=== PATIENT | female | born 1995 | race Caucasian/White ===

== ENCOUNTER 2016-11-28 09:43 | Emergency (ER) | payer BC ==
[~2016-11-28] VITALS: Ht 162.6 cm; Wt 75.3 kg
[~2016-11-28 09:43] MED LIST: LEVAAER2 INH; LEVO-13 PO; LISI-725 PO; METO25TA3 PO; PRED20TA2 PO
[2016-11-28 09:51] VITALS: TEMP 36.8; Ht 162.6 cm; Wt 75.3 kg
[2016-11-28] MEDS ORDERED: DILT120C68 PO (10:04)
[2016-11-28] MEDS ORDERED: ISOT30CA PO (10:04)
[2016-11-28] MEDS ORDERED: LEVA45AE INH (10:05)
[2016-11-28] MEDS ORDERED: SODIUM CHLORIDE 0.9% 1000ML 2,000 ML IV STA (10:11)
--- NOTE | 2016-11-28 10:24 | EMERGENCY ROOM VISIT NOTE ---
History Report prepared by Wendy: Natna Gillespie Under the Supervision of: Dr. Holli Alberto M.D. First contact with patient: 10:02 Chief Complaint: ED VAG BLEEDING Stated Complaint: HEAVY MENSTRUAL BLEEDING/PARAGARD History of Present Illness The patient is a 21 year old female who presents to the Emergency Room with complaints of heavy vaginal bleeding. The patient had a copper IUD placed in August. She had abnormally heavy menstrual bleeding on November 05, which was the first time she bled since she had the IUD inserted. The patient started bleeding again this week, which is also abnormally heavy. The patient had pelvic pain with the bleeding, which is currently resolved. The patient also complains of dizziness. She has been taking Ibuprofen for pain. The patient had a negative test prior to IUD placement. Source of History: patient Onset: November 05 Position: other (vaginal) Symptom Intensity: heavy Quality: other (vaginal bleeding) Associated Symptoms: + abdominal pain (pelvic) Note: Positive for dizziness. Review of Systems See HPI for pertinent positives & negatives. A total of 10 systems reviewed and were otherwise negative. Past Medical & Surgical Medical Problems: (1) HTN (hypertension) Family History Cancer Diabetes mellitus Gallbladder disease Heart disease Hypertension Lung disease Social History Smoking Status: Never Smoker Marital Status: Housing Status: lives with family Occupation Status: employed Current/Historical Medications Scheduled Diltiazem Hcl Ext Rel (Tiazac), 120 MG PO DAILY Isotretinoin (Claravis), 40 MG PO DAILY Scheduled PRN Levalbuterol Tartrate (Levalbuterol Tartrate Hfa), 1 PUFF INH QID PRN for SOB/ Wheezing Allergies Coded Allergies: Lisinopril (Unverified Adverse Reaction, Severe, angioedema, 11/28/16) Physical Exam Vital Signs Date Time Temp Pulse Resp B/P Pulse Ox O2 Delivery O2 Flow Rate FiO2 11/28/16 14:51 70 130/87 98 11/28/16 13:19 59 18 130/93 100 Room Air 11/28/16 11:00 73 125/81 99 11/28/16 10:12 76 11/28/16 09:51 36.8 84 18 162/115 98 Room Air Physical Exam Vital signs reviewed. General: Well-appearing female, in no significant distress. HEENT: No scleral icterus, PERRLA, neck supple. Atraumatic. Cardiovascular: Regular rate and rhythm, no extra sounds. Pulmonary: Clear to auscultation bilaterally, normal work of breathing. Abdomen: Soft, nontender, nondistended, positive bowel sounds. Musculoskeletal: Atraumatic, no peripheral edema. Neurologic: Patient awake alert and oriented x 3 Skin: Warm, dry, no rash Pelvis: Scant amount of dark vaginal blood. IUD strings palpated but not visualized. Medical Decision & Procedures ER Provider Diagnostic Interpretation: US results as stated below per my review and radiologist interpretation: ULTRASOUND OF THE PELVIS CLINICAL HISTORY: Intrauterine device placement. COMPARISON STUDY: Pelvic ultrasound dated 04/04/2016. TECHNIQUE: Real-time, grayscale, and color flow sonography of the pelvis is performed both transabdominally and endovaginally. Images are reviewed in the transverse and longitudinal planes. FINDINGS: Uterus: The uterus is normal in size and echotexture, measuring 5.7 x 3.0 x 4.6 cm. Endometrium: The endometrium is normal in appearance, and the endometrial stripe is normal in thickness measuring up to 0.8 cm. A shadowing intrauterine device is noted and appears to be in appropriate position. Ovaries: The ovaries are normal in size and morphology. The right ovary measures 3.8 x 1.5 x 2.0 cm and the left ovary measures 4.2 x 1.7 x 2.4 cm. There are numerous small bilateral ovarian follicles. Normal Doppler waveforms are shown within both ovaries. Pelvis: There is no free fluid in the cul-de-sac. No concerning adnexal lesion is seen. IMPRESSION: 1. No acute sonographic amount is identified in the pelvis. 2. An intrauterine device is identified and appears to be in appropriate position. Electronically signed by: Aidan Loving M.D. 11/28/2016 12:06 PM Dictated Date/Time: 11/28/2016 12:04 PM Laboratory Results 11/28/16 10:43 Red Blood Count 4.89, Mean Corpuscular Volume 86.7, Mean Corpuscular Hemoglobin 30.1, Mean Corpuscular Hemoglobin Concent 34.7, Mean Platelet Volume 9.5, Neutrophils (%) (Auto) 58.9, Lymphocytes (%) (Auto) 24.0, Monocytes (%) (Auto) 12.1, Eosinophils (%) (Auto) 4.4, Basophils (%) (Auto) 0.6, Neutrophils # (Auto ) 2.82, Lymphocytes # (Auto) 1.15, Monocytes # (Auto) 0.58, Eosinophils # (Auto ) 0.21, Basophils # (Auto) 0.03 11/28/16 10:43 Test 11/28/16 10:43 White Blood Count 4.79 K/uL (4.8-10.8) Red Blood Count 4.89 M/uL (4.2-5.4) Hemoglobin 14.7 g/dL (12.0-16.0) Hematocrit 42.4 % (37-47) Mean Corpuscular Volume 86.7 fL (80-100) Mean Corpuscular Hemoglobin 30.1 pg (25-34) Mean Corpuscular Hemoglobin Concent 34.7 g/dl (32-36) Platelet Count 278 K/uL (130-400) Mean Platelet Volume 9.5 fL (7.4-10.4) Neutrophils (%) (Auto) 58.9 % Lymphocytes (%) (Auto) 24.0 % Monocytes (%) (Auto) 12.1 % Eosinophils (%) (Auto) 4.4 % Basophils (%) (Auto) 0.6 % Neutrophils # (Auto) 2.82 K/uL (1.4-6.5) Lymphocytes # (Auto) 1.15 K/uL (1.2-3.4) Monocytes # (Auto) 0.58 K/uL (0.11-0.59) Eosinophils # (Auto) 0.21 K/uL (0-0.5) Basophils # (Auto) 0.03 K/uL (0-0.2) RDW Standard Deviation 38.0 fL (36.4-46.3) RDW Coefficient of Variation 12.0 % (11.5-14.5) Immature Granulocyte % (Auto) 0.0 % Immature Granulocyte # (Auto) 0.00 K/uL (0.00-0.02) Anion Gap 10.0 mmol/L (3-11) Est Creatinine Clear Calc Drug Dose 95.6 ml/min Estimated GFR () 103.1 Estimated GFR (Non- 88.9 BUN/Creatinine Ratio 13.9 (10-20) Calcium Level 9.2 mg/dl (8.5-10.1) Total Bilirubin 0.5 mg/dl (0.2-1) Direct Bilirubin 0.1 mg/dl (0-0.2) Aspartate Amino Transf (AST/SGOT) 26 U/L (15-37) Alanine Aminotransferase (ALT/SGPT) 33 U/L (12-78) Alkaline Phosphatase 76 U/L (45-117) Total Protein 7.8 gm/dl (6.4-8.2) Albumin 4.1 gm/dl (3.4-5.0) Human Chorionic Gonadotropin, Qual NEG (NEG) Laboratory results per my review. Medications Administered Medications (Trade) Dose Ordered Sig/Malorie Route Start Time Stop Time Status Last Admin Dose Admin Sodium Chloride (Nss 1000ml) 2,000 ml @ 999 mls/hr Q2H1M STAT IV 11/28/16 10:11 11/28/16 15:03 DC 11/28/16 10:46 999 MLS/HR ED Course 1008: Past medical records reviewed. The patient was evaluated in room C7. A complete history and physical examination was performed. 1011: NSS 2000 ml @ 999 mls/hr. 1405: Reexamined the patient. 1445: Reassessed the patient. Discussed the findings with her. She verbalized understanding and agreement of the treatment plan. The patient is ready for discharge. Medical Decision Etiologies such as ectopic , dysfunction uterine bleeding, bleeding dyscrasia, trauma, infection, as well as others were entertained. This patient was evaluated and appeared to be in no significant distress. Physical examination is fairly unrevealing. Ultrasound of the pelvis reveals the IUD in good position. Pelvic exam reveals a small amount of dark blood in the vaginal vault. IUD strings are palpated but not well visualized. I suspect the patient is having dysfunctional bleeding secondary to the IUD. H&H is stable. The patient will follow-up with her PEDIATRIC GENETICIST for reevaluation and return to the ER for worsening of symptoms or any medical concerns. Impression Primary Impression: Dysfunctional uterine bleeding Additional Impression: IUD (intrauterine device) in place Scribe Attestation The scribe's documentation has been prepared under my direction and personally reviewed by me in its entirety. I confirm that the note above accurately reflects all work, treatment, procedures, and medical decision making performed by me. Departure Information Dispostion Home / Self-Care Referrals Live, Aspen C.R.N.P. (PCP) Forms HOME CARE DOCUMENTATION FORM, IMPORTANT VISIT INFORMATION, WORK / SCHOOL INSTRUCTIONS Patient Instructions My [facility] [employer] Additional Instructions Diagnosis: IUD placement, dysfunctional uterine bleeding Please follow-up with Dr. Calderon of [facility] group PEDIATRIC GENETICIST at 10: 30 AM Monday12/05/16 Drink plenty of clear fluids. Return to the emergency department for worsening of symptoms or any medical concerns. Problem Qualifiers
[2016-11-28 11:02] LABS: BASO % 0.6 %; BASO ABS # 0.03 K/uL (0-0.2); COMPLETE YES; EOS % 4.4 %; HEMATOCRIT 42.4 % (37-47); LYMPH ABS # 1.15 K/uL (1.2-3.4); MEAN CELL VOLUME 86.7 fL (80-100); MEAN CORPUSCULAR HEMOGLOBIN 30.1 pg (25-34); MEAN CORPUSCULAR HGB CONC 34.7 g/dl (32-36); MEAN PLATELET VOLUME 9.5 fL (7.4-10.4); MONO % 12.1 %; NEUT % 58.9 %; PLATELET COUNT 278 K/uL (130-400); RED BLOOD COUNT 4.89 M/uL (4.2-5.4); WHITE BLOOD COUNT 4.79 K/uL (4.8-10.8)
[2016-11-28 11:21] LABS: BUN/CREATININE RATIO 13.9 (10-20); CALCIUM 9.2 mg/dl (8.5-10.1); CREATININE 0.91 mg/dl (0.60-1.20)
[2016-11-28 11:39] LABS: PREG INTERNAL NEGATIVE QC NEG CLEAR BACKGROUND; PREG INTERNAL POSITIVE QC POS CONTROL LINE
--- NOTE | 2016-11-28 12:07 | DIAGNOSTIC IMAGING REPORT ---
ULTRASOUND OF THE PELVIS CLINICAL HISTORY: Intrauterine device placement. COMPARISON STUDY: Pelvic ultrasound dated 04/04/2016. TECHNIQUE: Real-time, grayscale, and color flow sonography of the pelvis is performed both transabdominally and endovaginally. Images are reviewed in the transverse and longitudinal planes. FINDINGS: Uterus: The uterus is normal in size and echotexture, measuring 5.7 x 3.0 x 4.6 cm. Endometrium: The endometrium is normal in appearance, and the endometrial stripe is normal in thickness measuring up to 0.8 cm. A shadowing intrauterine device is noted and appears to be in appropriate position. Ovaries: The ovaries are normal in size and morphology. The right ovary measures 3.8 x 1.5 x 2.0 cm and the left ovary measures 4.2 x 1.7 x 2.4 cm. There are numerous small bilateral ovarian follicles. Normal Doppler waveforms are shown within both ovaries. Pelvis: There is no free fluid in the cul-de-sac. No concerning adnexal lesion is seen. IMPRESSION: 1. No acute sonographic amount is identified in the pelvis. 2. An intrauterine device is identified and appears to be in appropriate position. Electronically signed by: Aidan Loving M.D. 11/28/2016 12:06 PM Dictated Date/Time: 11/28/2016 12:04 PM
[2016-11-28 14:51] VITALS: BP 130/87; PULSE 70; O2SAT 98
== END 2016-11-28 14:52 | disposition home or self-care (01) ==
LOC: C.EDB 09:46 → C.EDC 14:52
DX: N93.8 Other specified abnormal uterine and vaginal bleeding (principal); I10 Essential (primary) hypertension; Z97.5 Presence of (intrauterine) contraceptive device; Z79.899 Other long term (current) drug therapy; Z88.8 Allergy status to other drugs, medicaments and biological substances; Z80.9 Family history of malignant neoplasm, unspecified; Z83.3 Family history of diabetes mellitus; Z83.79 Family history of other diseases of the digestive system; Z82.49 Family history of ischemic heart disease and other diseases of the circulatory system

== ENCOUNTER 2016-12-13 19:45 | Emergency (ER) | payer BC ==
[~2016-12-13] VITALS: Ht 162.6 cm; Wt 76.0 kg
[~2016-12-13 19:45] MED LIST changes: +DILT120C68 PO; +ISOT30CA PO; +LEVA45AE INH; -LEVAAER2 INH; -LEVO-13 PO; -LISI-725 PO; -METO25TA3 PO; -PRED20TA2 PO
[2016-12-13 19:52] VITALS: TEMP 37; Ht 162.6 cm; Wt 76.0 kg
[2016-12-13 20:10] VITALS: O2SAT 100
--- NOTE | 2016-12-13 20:18 | EMERGENCY ROOM VISIT NOTE ---
History Report prepared by Wendy: Vance Solitario Under the Supervision of: Dr. Vance Arias M.D. First contact with patient: 20:13 Chief Complaint: ALLERGIC REACTION Stated Complaint: ALLERGIC REACTION Nursing Triage Summary: Pt reports she had an unknown allergy to shrimp (had eaten in past). Had shrimp this evening approx 1800 and developed hives and chest/throat tightness. Used epipen prior to arrival. History of Present Illness The patient is a 21 year old female who presents to the Emergency Room with complaints of an episode of allergic reaction occurring about 2 hours [employer]. She notes she ate shrimp and then began to develop hives on her face and scalp, and chest tightness. She administered an EpiPen about 45 minutes ago which seemed to have helped her hives. She denies any nausea or vomiting, and denies any chance of . The patient admits to a history of asthma, and notes she was here two weeks ago after losing too much blood following the insertion of a copper IUD. Source of History: patient, spouse/significant other Onset: about 2 hours [employer] Position: head Quality: other (allergic reaction) Timing: other (episode) Modifying Factors (Relieving): other (EpiPen) Associated Symptoms: + chest pain ("tightness"), + rash (on face and scalp) , No nausea, No vomiting Review of Systems See HPI for pertinent positives & negatives. A total of 10 systems reviewed and were otherwise negative. Past Medical & Surgical Medical Problems: (1) HTN (hypertension) Old medical records were reviewed. Nurse's notes were reviewed and I agree with. Family History Cancer Diabetes mellitus Gallbladder disease Heart disease Hypertension Lung disease Social History Smoking Status: Never Smoker Drug Use: none Marital Status: Housing Status: lives with family Occupation Status: employed Current/Historical Medications Scheduled Diltiazem Hcl Ext Rel (Tiazac), 120 MG PO DAILY Isotretinoin (Claravis), 40 MG PO DAILY Metformin Hcl (Glucophage), 500 MG PO DAILY Prednisone (Prednisone), 50 MG PO DAILY Scheduled PRN Levalbuterol Tartrate (Levalbuterol Tartrate Hfa), 1 PUFF INH QID PRN for SOB/ Wheezing Allergies Coded Allergies: Lisinopril (Unverified Adverse Reaction, Severe, angioedema, 11/28/16) Physical Exam Vital Signs Date Time Temp Pulse Resp B/P Pulse Ox O2 Delivery O2 Flow Rate FiO2 2/14/17 22:33 74 16 127/91 96 Room Air 12/13/16 22:00 72 16 128/83 96 Room Air 12/13/16 21:00 75 16 128/84 100 Room Air 12/13/16 20:10 77 12/13/16 20:10 100 Room Air 12/13/16 20:00 79 18 156/86 99 Room Air 12/13/16 20:00 100 Room Air 12/13/16 19:52 37.0 98 18 164/96 100 Room Air Physical Exam General: Non ill appearing young female. Minimal redness of the face. No respiratory distress; no difficulty speaking or swallowing. HEENT: Normal cephalic atraumatic. Pupils are equal round and reactive to light. Extraocular movements are intact. Oropharynx is pink with moist mucous membranes. No swelling of the mouth lips or tongue. Posterior oropharynx is wide open Neck: Supple with a midline trachea. No meningeal signs or stiffness, no JVD or bruits. No Stridor. Chest: Clear to auscultation bilaterally. No wheezes or rhonchi. No increased work of breathing. Heart: regular rate and rhythm. Abdomen: Soft nontender, nondistended without rebound guarding or rigidity. Extremities: No cyanosis clubbing or edema. No calf tenderness or assymetry Spine/Back. Non tender to palpation. No CVA tenderness Skin: Good turgor without rashes. Neurologic exam: Cranial nerves two through 12 are intact. Motor and sensation are intact and symmetrical throughout. Medical Decision & Procedures Medications Administered Medications (Trade) Dose Ordered Sig/[facility] [place] Start Time Stop Time Status Last Admin Dose Admin Methylprednisolone Sodium Succinate (Solu-Medrol IV) 125 mg ONE STAT IV 12/13/16 20:20 12/13/16 20:22 DC 12/13/16 20:36 125 MG Diphenhydramine HCl 25 mg 25 mg NOW STAT IV 12/13/16 20:20 12/13/16 20:22 DC 12/13/16 20:37 25 MG Famotidine/ Dextrose (Pepcid IV Inj/ D5 100ml) 102 ml @ 200 mls/hr ONE STAT IV 12/13/16 20:20 12/13/16 20:50 DC 12/13/16 20:37 200 MLS/HR Epinephrine (Epipen) 0.3 mg NOW STAT IM 12/13/16 22:26 12/13/16 22:27 DC 12/13/16 22:32 0.3 MG ED Course 2018: Past medical records reviewed. The patient was evaluated in room A9B, and a complete history and physical examination were performed. 2019: Ordered Famotidine 20 mg/Dextrose 102 ml @ 200 mls/hr IV, Benadryl Inj 25 mg IV, and Solu-Medrol IV 125 mg IV. 2100: I reassessed the patient and she is doing better. 2224: I reassessed the patient and she is asymptomatic. 2225: Ordered Epinephrine 0.3 mg IM. 2229: Upon reevaluation, the patient is doing well. I discussed the results and treatment plan with the patient. She verbalized agreement of the treatment plan. The patient was discharged home. Medical Decision Differentials include allergic reaction, and urticaria. This patient comes in as described above. She was placed in room A9. She is here for treatment and evaluation of allergic reaction. She has treated herself with epinephrine at home. She apparently had a reaction to shrimp ,she' s had this before. She seemed a lot better . IV access established was given Benadryl 25 mg IV, solumedrol 125 mg IV and Pepcid 20 mg iv. she was observed for another hour and a half to 2 and remained comfortable and asymptomatic. She 's no further signs of allergic reaction. She feels good and up to going home. Prior to discharge, she has no shortness of breath or or facial swelling ,no chest pain, GI symptoms or rash. I did give her an EpiPen to go home with so she has one in case she has any further reactions. I told her to avoid shrimp. She was also given a small prescription for prednisone for the next 3 days as well as Benadryl instructions. She should return if: recurrence of symptoms, shortness of breath, any new problems or concerns. She is happy the plan and discharged to home. She should follow-up with her doctor this week for recheck. Impression Primary Impression: Allergic reaction Scribe Attestation The scribe's documentation has been prepared under my direction and personally reviewed by me in its entirety. I confirm that the note above accurately reflects all work, treatment, procedures, and medical decision making performed by me. Departure Information Dispostion Home / Self-Care Prescriptions Prednisone (Prednisone) 50 Mg Tab 50 MG PO DAILY, #3 TAB Prov: Vance Arias M.D. 12/13/16 Referrals [facility] Mancini (PCP) Patient Instructions My [facility] Additional Instructions Rest. Drink plenty of fluids. Use prednisone 50 mg a day for the next 3 dayssteroid Use Benadryl 25-50 mg every 8 hours if needed Return if you have recurrence of symptoms, shortness of breath, nausea or vomiting, difficulty speaking or swallowing, rash, any new problems or concerns Ensure that you carry your epi-pen with you and be careful with what foods that you eat Follow-up with your doctor this week for recheck
[2016-12-13] MEDS ORDERED: METHYLPREDNISOLONE 125 MG VIAL IV STA (20:20)
[2016-12-13] MEDS ORDERED: FAMOTIDINE IV INJ 20 MG in DEXTROSE 5% 100ML 100 ML IV STA (20:20)
[2016-12-13] MEDS ORDERED: DiphenhydrAMINE HCL 50 MG/ML VIAL IV STA (20:20)
[2016-12-13] MEDS ORDERED: GLC/500 PO (20:26)
[2016-12-13] MEDS ORDERED: FAMOTIDINE 20MG/102 ML D5W ONE (20:34)
[2016-12-13] MEDS ORDERED: PRED50TA PO (22:19)
[2016-12-13] MEDS ORDERED: EPINEPHRINE ADULT AUTO-INJECT 0.3 MG SYR IM STA (22:26)
[2016-12-13 22:33] VITALS: BP 127/91; PULSE 74; O2SAT 96
== END 2016-12-13 22:38 | disposition home or self-care (01) ==
LOC: C.EDB 19:46 → C.EDA 22:38
DX: T78.40XA Allergy, unspecified, initial encounter (principal); X58.XXXA Exposure to other specified factors, initial encounter; Z91.013 Allergy to seafood; I10 Essential (primary) hypertension; Z79.899 Other long term (current) drug therapy

== ENCOUNTER → 2018-01-10 | Outpatient (CLI) | payer OTHER, BC ==
[~2018-01-10] MED LIST changes: +CIPR-255 PO; +GLC/500 PO
--- NOTE | 2018-01-10 15:44 | DIAGNOSTIC IMAGING REPORT ---
CT OF THE ABDOMEN AND PELVIS WITHOUT CONTRAST, STONE PROTOCOL CLINICAL HISTORY: Abdominal pain and nausea. Hematuria. COMPARISON STUDY: Pelvic ultrasound November 28, 2016. TECHNIQUE: Helical axial images of the abdomen and pelvis were obtained without IV or oral contrast according to renal stone protocol. A dose lowering technique was utilized adhering to the principles of ALARA. FINDINGS: The lung bases are clear. No renal, ureteral or bladder calculi are present. There is no hydronephrosis or hydroureter. Evaluation of the abdomen and pelvis is suboptimal on this unenhanced exam. Sensitivity for detection of urothelial lesions is significantly diminished. The liver, spleen, adrenal glands and pancreas are unremarkable. There is no evidence for a bowel obstruction. A 9 mm water attenuation lesion within the lower pole of the right kidney is suboptimally assessed on this exam but favors a cyst. The appendix is normal. There is no lymphadenopathy. Intrauterine device is in place. There are no suspicious osseous lesions. IMPRESSION: 1. No urinary calculi or hydronephrosis. 2. No acute process within the abdomen or pelvis on unenhanced exam. Normal appendix. No bowel obstruction. Electronically signed by: Riley Lucio M.D. 01/10/2018 3:43 PM Dictated Date/Time: 01/10/2018 3:35 PM
== END | disposition home or self-care (01) ==
LOC: C.CTS 15:12
PROVIDERS: ATTEND Nurse Practitioner Family
DX: R10.9 Unspecified abdominal pain (principal); R31.9 Hematuria, unspecified; R11.0 Nausea

== ENCOUNTER 2018-01-15 13:00 | Emergency (ER) | payer OTHER, BC ==
[~2018-01-15] VITALS: Ht 162.6 cm; Wt 76.5 kg
[~2018-01-15 13:00] MED LIST changes: -CIPR-255 PO
[2018-01-15 13:04] VITALS: TEMP 36.8; Ht 162.6 cm; Wt 76.5 kg
[2018-01-15] MEDS ORDERED: SODIUM CHLORIDE 0.9% 1000ML 2,000 ML IV STA (13:15)
[2018-01-15] MEDS ORDERED: KETOROLAC TROMETHAMINE 30 MG/ML VIAL IV STA (13:15)
--- NOTE | 2018-01-15 13:23 | EMERGENCY ROOM VISIT NOTE ---
History Report prepared by Wendy: Carloz Forrest Under the Supervision of: Dr. Christian Fontaine M.D. First contact with patient: 13:13 Chief Complaint: FLANK PAIN Stated Complaint: WORSENING KIDNEY PAIN DESPITE ORAL ANTIBIOTICS History of Present Illness The patient is a 22 year old female who presents to the Emergency Room with complaints of persistent but worsening bilateral flank pain that first onset in the beginning of November, over a month ago. She rates her current pain as a 7/ 10 in severity. The patient states that she initially when to see her primary care nurse practitioner on the 07 of December, who diagnosed the patient with a UTI and placed her on Cipro. This did no improved her symptoms so they switched her to Amoxicillin. She was also referred to [facility] for a CT scan, which was unremarkable. The patient had a urine culture performed which contained Group B Strep, which was sensitive to Cipro. She tried to contact her PCP today again as well as set up an appointment at [facility], who referred her to the Emergency Department in case she would need IV-antibiotics. The patient has some diffuse abdominal pain, but denies any fevers, nausea, vomiting, or burning with urination. Source of History: patient Onset: Over 1 month ago. Position: back (Bilateral flank pain) Symptom Intensity: 7/10 Timing: worsening, other (Persistent) Associated Symptoms: + abdominal pain, No fevers, No nausea, No urinary symptoms Review of Systems See HPI for pertinent positives and negatives. A total of ten systems were reviewed and were otherwise negative. Past Medical & Surgical Medical Problems: (1) HTN (hypertension) Family History Cancer Diabetes mellitus Gallbladder disease Heart disease Hypertension Lung disease Social History Smoking Status: Never Smoker Drug Use: none Marital Status: Housing Status: lives with family Occupation Status: employed Current/Historical Medications Scheduled Ciprofloxacin Hcl (Cipro), 500 MG PO BID Diltiazem Hcl Ext Rel (Tiazac), 120 MG PO DAILY Metformin Hcl (Glucophage), 500 MG PO DAILY Scheduled PRN Levalbuterol Tartrate (Levalbuterol Tartrate Hfa), 1 PUFF INH QID PRN for SOB/ Wheezing Allergies Coded Allergies: Lisinopril (Unverified Adverse Reaction, Severe, angioedema, 01/15/18) Physical Exam Vital Signs Date Time Temp Pulse Resp B/P (MAP) Pulse Ox O2 Delivery O2 Flow Rate FiO2 01/15/18 15:33 72 18 133/83 100 Room Air 01/15/18 14:00 93 01/15/18 13:55 72 18 139/87 100 Room Air 01/15/18 13:04 36.8 101 20 186/108 99 Room Air Physical Exam GENERAL: Awake, alert, well-appearing, in no distress HENT: Normocephalic, atraumatic. Oropharynx unremarkable. Mucous Membranes are Dry. EYES: Normal conjunctiva. Sclera non-icteric. NECK: Supple. No nuchal rigidity. FROM. No JVD. RESPIRATORY: Clear to auscultation. CARDIAC: Regular rate, normal rhythm. Extremities warm and well perfused. Pulses equal. ABDOMEN: Soft, non-distended. Generalized abdominal and b/l flank tenderness to palpation. No peritoneal signs. No rebound or guarding. No masses. RECTAL: Deferred. MUSCULOSKELETAL: Chest examination reveals no tenderness. The back is symmetrical on inspection without obvious abnormality. There is no CVA tenderness to palpation. No joint edema. There is generalized flank tenderness to palpation. LOWER EXTREMITIES: Calves are equal size bilaterally and non-tender. No edema. No discoloration. NEURO: Normal sensorium. No sensory or motor deficits noted. SKIN: No rash or jaundice noted. Medical Decision & Procedures Laboratory Results 01/15/18 13:45 Red Blood Count 4.65, Mean Corpuscular Volume 87.5, Mean Corpuscular Hemoglobin 28.6, Mean Corpuscular Hemoglobin Concent 32.7, Mean Platelet Volume 9.4, Neutrophils (%) (Auto) 62.9, Lymphocytes (%) (Auto) 24.3, Monocytes (%) (Auto) 7.2, Eosinophils (%) (Auto) 4.9, Basophils (%) (Auto) 0.6, Neutrophils # (Auto) 5.30, Lymphocytes # (Auto) 2.05, Monocytes # (Auto) 0.61, Eosinophils # (Auto) 0.41, Basophils # (Auto) 0.05 01/15/18 13:45 Test 01/15/18 13:37 01/15/18 13:45 Urine Color YELLOW Urine Appearance CLEAR (CLEAR) Urine pH 5.0 (4.5-7.5) Urine Specific [place] 1.021 (1.000-1.030) Urine Protein NEG (NEG) Urine Glucose (UA) NEG (NEG) Urine Ketones NEG (NEG) Urine Occult Blood NEG (NEG) Urine Nitrite NEG (NEG) Urine Bilirubin NEG (NEG) Urine Urobilinogen NEG (NEG) Urine Leukocyte Esterase NEG (NEG) Urine Test NEG (NEG) White Blood Count 8.43 K/uL (4.8-10.8) Red Blood Count 4.65 M/uL (4.2-5.4) Hemoglobin 13.3 g/dL (12.0-16.0) Hematocrit 40.7 % (37-47) Mean Corpuscular Volume 87.5 fL (80-100) Mean Corpuscular Hemoglobin 28.6 pg (25-34) Mean Corpuscular Hemoglobin Concent 32.7 g/dl (32-36) Platelet Count 311 K/uL (130-400) Mean Platelet Volume 9.4 fL (7.4-10.4) Neutrophils (%) (Auto) 62.9 % Lymphocytes (%) (Auto) 24.3 % Monocytes (%) (Auto) 7.2 % Eosinophils (%) (Auto) 4.9 % Basophils (%) (Auto) 0.6 % Neutrophils # (Auto) 5.30 K/uL (1.4-6.5) Lymphocytes # (Auto) 2.05 K/uL (1.2-3.4) Monocytes # (Auto) 0.61 K/uL (0.11-0.59) Eosinophils # (Auto) 0.41 K/uL (0-0.5) Basophils # (Auto) 0.05 K/uL (0-0.2) RDW Standard Deviation 38.1 fL (36.4-46.3) RDW Coefficient of Variation 12.1 % (11.5-14.5) Immature Granulocyte % (Auto) 0.1 % Immature Granulocyte # (Auto) 0.01 K/uL (0.00-0.02) Anion Gap 8.0 mmol/L (3-11) Est Creatinine Clear Calc Drug Dose 89.6 ml/min Estimated GFR () 94.7 Estimated GFR (Non- 81.7 BUN/Creatinine Ratio 14.7 (10-20) Calcium Level 9.3 mg/dl (8.5-10.1) Total Bilirubin 0.3 mg/dl (0.2-1) Direct Bilirubin < 0.1 mg/dl (0-0.2) Aspartate Amino Transf (AST/SGOT) 14 U/L (15-37) Alanine Aminotransferase (ALT/SGPT) 14 U/L (12-78) Alkaline Phosphatase 75 U/L (45-117) Total Protein 7.9 gm/dl (6.4-8.2) Albumin 4.2 gm/dl (3.4-5.0) Lipase 216 U/L (73-393) Laboratory results reviewed by me Medications Administered Medications (Trade) Dose Ordered Sig/Malorie Route Start Time Stop Time Status Last Admin Dose Admin Sodium Chloride 2,000 ml @ 999 mls/hr Q2H1M STAT IV 01/15/18 13:15 01/15/18 15:15 DC 01/15/18 13:51 999 MLS/HR Ketorolac Tromethamine (Toradol Inj) 15 mg NOW STAT IV 01/15/18 13:15 01/15/18 13:23 DC 01/15/18 13:52 15 MG ED Course 1313: The patient was evaluated in room A2. A complete history and physical exam was performed. 1315: Ordered Toradol 15 mg IV, Sodium Chloride 2000 mL @ 999 mL/hr IV. 1452: I reevaluated the patient. Discussed results and discharge instructions: she verbalized understanding and agreement. The patient is ready for discharge. Medical Decision I reviewed the patient's past medical history, medications, and the nursing notes as described above. Differential diagnosis: Etiologies such as appendicitis, diverticulitis, PUD, biliary pathology, UTI, pancreatitis, obstruction, mesenteric ischemia, aortic pathology, infections, inflammatory bowel disease, renal colic, as well as others were entertained. The patient is a 22-year-old woman with pmhx of PCOS who presents emergency department with persistent bilateral flank pain in the setting of being treated outpatient for a UTI with 2 courses of Cipro after the patient was found to be group B strep per hpi. Of note, the patient has a copper IUD and is not on OCPs. Denies h/o suspected endometriosis. On arrival the patient is well- appearing, in no acute distress, afebrile stable vital signs. Patient has mild bilateral flank pain and generalized abd ttp but otherwise no peritoneal signs. Labs unremarkable including WBC within normal limits and UA completely normal. Given the patient had a recent CT scan that was negative in the setting of reassuring lab work and being afebrile is unlikely if the patient has a persistent UTI or pyelonephritis. Patient denies any dysuria or vaginal symptoms. I did offer the patient the option to proceed with a pelvic exam and transvaginal ultrasound given her PCOS to evaluate for alternate causes as well as the option of repeating a CAT scan at this time with contrast. However the patient does feel improved and prefers to follow-up outpatient with her doctors. Findings and plan for follow-up reviewed with patient. Patient agreeable and d/c'd per discharge instructions. Medication Reconcilliation Current Medication List: was personally reviewed by me Blood Pressure Screening Patient's blood pressure: Elevated blood pressure Impression Primary Impression: Abdominal pain Scribe Attestation The scribe's documentation has been prepared under my direction and personally reviewed by me in its entirety. I confirm that the note above accurately reflects all work, treatment, procedures, and medical decision making performed by me. Departure Information Dispostion Home / Self-Care Referrals Aspen Mancini (PCP) Patient Instructions ED Abdominal Pain Unkn Cause, My [facility] Additional Instructions Please follow up with your primary care physician and shelver in the next week for re-evaluation. Your urine culture is pending and you will receive a call only if it is positive. The cause of your symptoms is unclear at this time Otherwise, your exam and lab results did not show signs of an emergent condition at this time. Acetaminophen or ibuprofen for pain and fevers as needed. Drink plenty of fluids to ensure hydration. Return to the emergency department for worsening symptoms as described in the accompanying instructions.
[2018-01-15 14:01] LABS: BASO % 0.6 %; BASO ABS # 0.05 K/uL (0-0.2); EOS % 4.9 %; EOS ABS # 0.41 K/uL (0-0.5); HEMATOCRIT 40.7 % (37-47); HEMOGLOBIN 13.3 g/dL (12.0-16.0); IG# 0.01 K/uL (0.00-0.02); LYMPH % 24.3 %; LYMPH ABS # 2.05 K/uL (1.2-3.4); MEAN CELL VOLUME 87.5 fL (80-100); MEAN CORPUSCULAR HEMOGLOBIN 28.6 pg (25-34); MEAN CORPUSCULAR HGB CONC 32.7 g/dl (32-36); MEAN PLATELET VOLUME 9.4 fL (7.4-10.4); MONO % 7.2 %; MONO ABS # 0.61 K/uL (0.11-0.59); NEUT % 62.9 %; PLATELET COUNT 311 K/uL (130-400); RED CELL DISTRIBUTION WIDTH CV 12.1 % (11.5-14.5); RED CELL DISTRIBUTION WIDTH SD 38.1 fL (36.4-46.3); WHITE BLOOD COUNT 8.43 K/uL (4.8-10.8)
[2018-01-15] MEDS ORDERED: CIPR-255 PO (14:12)
[2018-01-15 14:17] LABS: ALBUMIN 4.2 gm/dl (3.4-5.0); ALT/SGPT 14 U/L (12-78); BLOOD UREA NITROGEN 14 mg/dl (7-18); CALCIUM 9.3 mg/dl (8.5-10.1); CARBON DIOXIDE 23 mmol/L (21-32); CREATININE 0.97 mg/dl (0.60-1.20); GLUCOSE 84 mg/dl (70-99); LIPASE 216 U/L (73-393); POTASSIUM 3.7 mmol/L (3.5-5.1); SODIUM 136 mmol/L (136-145)
[2018-01-15 14:20] LABS: ALKALINE PHOSPHATASE 75 U/L (45-117); AST/SGOT 14 U/L (15-37); TOTAL PROTEIN 7.9 gm/dl (6.4-8.2)
[2018-01-15 15:33] VITALS: BP 133/83; PULSE 72; O2SAT 100
== END 2018-01-15 15:42 | disposition home or self-care (01) ==
LOC: C.EDB 13:02 → C.EDA 15:42
DX: R10.84 Generalized abdominal pain (principal); I10 Essential (primary) hypertension; E28.2 Polycystic ovarian syndrome; Z97.5 Presence of (intrauterine) contraceptive device; Z83.3 Family history of diabetes mellitus; Z83.79 Family history of other diseases of the digestive system; Z82.49 Family history of ischemic heart disease and other diseases of the circulatory system; Z83.6 Family history of other diseases of the respiratory system; Z80.9 Family history of malignant neoplasm, unspecified; Z88.8 Allergy status to other drugs, medicaments and biological substances

== ENCOUNTER 2021-04-06 08:07 | Inpatient (IN) ==
[2021-04-07] MEDS ORDERED: miSOPROStoL 50 MCG TAB PO ONE (09:01)
[2021-04-07] MEDS ORDERED: OXYTOCIN 30 UNITS/500 ML BAG IV PRN (09:01)
[2021-04-07 09:34] LABS: Hematocrit (blood only) 36.9 % (37-47); Hemoglobin 12.4 g/dL (12.0-16.0); Mean Corpuscular Hemoglobin 28.9 pg (25-34); Mean Corpuscular Hgb Conc 33.6 g/dL (32-36); Mean Platelet Volume 9.6 fL (7.4-10.4); Platelet Count 326 K/uL (130-400); RDW Standard Deviation 40.8 fL (36.4-46.3); Red Blood Count 4.29 M/uL (4.2-5.4)
[2021-04-07] MEDS ORDERED: LABETALOL HCL 100 MG TAB PO SCH (12:00)
[2021-04-07] MEDS: LABETALOL HCL 100 MG TAB PO SCH ×2 (12:19→19:47)
[2021-04-07] MEDS: miSOPROStoL 50 MCG TAB PO SCH ×3 (13:22→21:59)
[2021-04-07] MEDS: NIFEdipine EXTENDED REL 30 MG TABCR PO SCH (19:48)
[2021-04-07] MEDS ORDERED: NIFEdipine EXTENDED REL 30 MG TABCR PO SCH (21:00)
[2021-04-07] MEDS ORDERED: DINOPROSTONE 10 MG INSERT PV ONE (22:00)
[2021-04-08] MEDS: miSOPROStoL 50 MCG TAB PO SCH (06:13)
[2021-04-08] MEDS: LABETALOL HCL 100 MG TAB PO SCH ×3 (06:42→20:29)
[2021-04-08] MEDS: LEVOTHYROXINE SODIUM 25 MCG TABLET PO SCH (06:42)
[2021-04-08] MEDS: NIFEdipine EXTENDED REL 30 MG TABCR PO SCH ×2 (06:43→20:30)
[2021-04-08] MEDS ORDERED: DINOPROSTONE 10 MG INSERT PV ONE (11:22)
[2021-04-08] MEDS ORDERED: Nursing to Pharmacy Communication SCH (15:30)
[2021-04-09] MEDS ORDERED: OXYTOCIN 30 UNITS/500 ML BAG IV PRN ×2 (01:03→18:50)
[2021-04-09] MEDS: LACTATED RINGER'S 1,000 ML IV PRN ×2 (01:26→08:33)
[2021-04-09] MEDS ORDERED: BUTORPHANOL TARTRATE 1 MG/ML VIAL IV ONE ×2 (05:54→07:35)
[2021-04-09] MEDS: LABETALOL HCL 100 MG TAB PO SCH ×4 (06:42→19:03)
[2021-04-09] MEDS: NIFEdipine EXTENDED REL 30 MG TABCR PO SCH (06:42)
[2021-04-09] MEDS: LEVOTHYROXINE SODIUM 25 MCG TABLET PO SCH (06:43)
[2021-04-09] MEDS ORDERED: NALOXONE HCL 1 MG in SODIUM CHLORIDE 0.9% 1000ML 1,000 ML IV PRN (08:30)
[2021-04-09] MEDS ORDERED: ONDANSETRON INJ 2 MG/ML 2 ML VIAL IV PRN (08:30)
[2021-04-09] MEDS ORDERED: ePHEDrine sulfate 50 MG/ML AMP IV PRN (08:30)
[2021-04-09] MEDS ORDERED: NALOXONE HCL 0.4 MG/1 ML VIAL/CARP IV PRN (08:30)
[2021-04-09] MEDS ORDERED: fentaNYL 2MCG/ML ROPIVACAINE 1.25MG/ML 100 ML BAG EPI PRN (08:30)
[2021-04-09] MEDS ORDERED: diphenhydrAMINE 50 MG/ML VIAL IV PRN (08:30)
--- NOTE | 2021-04-09 08:30 | Anesthesiology Consultation ---
Date of Service April 09, 2021 Assessment & Plan ASA ASA2 Proposed Anesthesia Anesthesia Type: Labor Epidural Risk / Benefits Reviewed With: PT / POA / Parent / Guardian, Accepts Plan and Informed Consent Obtained History Height/Weight Height: 5 ft 5 in Weight: 90.718 kg Allergies Allergy/AdvReac Type Severity Reaction Status Date / Time pork derived (porcine) Allergy Hives Verified 04/05/21 13:11 lisinopril AdvReac Severe angioedema Verified 03/29/21 09:38 shellfish derived AdvReac Severe angioedema Verified 03/29/21 09:39 Medications Home Medications Medication Instructions Recorded Confirmed Last Taken labetalol 100 mg PO TID 03/22/21 04/07/21 04/07/21 05:00 levothyroxine [Synthroid] 25 mcg PO DAILY 03/22/21 04/07/21 04/07/21 05:00 nifedipine [Procardia XL] 60 mg PO BID 03/22/21 04/07/21 04/07/21 06:00 vit [id number] 1 tab PO DAILY 04/07/21 04/07/21 04/06/21 21:00 [ Vitamin] Active Medications Generic Name Dose Route Start Last Admin Trade Name Freq PRN Reason Stop Dose Admin Oxytocin 30 units in 500 mls @ 10 mls/hr 04/09/21 01:03 04/09/21 07:15 Pitocin IV 04/11/21 01:02 0.6 units/hr .Q24H PRN 10 mls/hr Labor Induction/Augmentation Titration Protocol 0.6 UNITS/HR Labetalol HCl 100 mg 04/07/21 12:00 04/09/21 06:42 Labetalol Hcl 100 Mg Tab PO 05/07/21 11:59 100 mg TID@0700,1200,1999 VIVIEN Administration Levothyroxine Sodium 25 mcg 04/08/21 06:30 04/09/21 06:43 Levothyroxine Sodium 25 Mcg Tablet PO 05/08/21 06:29 25 mcg DAILYBB VIVIEN Administration Nifedipine 60 mg 04/07/21 20:00 04/09/21 06:42 Nifedipine Extended Rel 30 Mg Tabcr PO 05/07/21 19:59 60 mg Q12@0700,1999 VIVIEN Administration Past Medical History Medical History Asthma Chronic hypertension Endometriosis Endometriosis determined by laparoscopy Hypothyroid Exercise / Class Metabolic Activity II 4-5 Yardwork/Stairs/Walk up hill Past Surgical History Surgical History H/O laparoscopy 2018 for endometriosis History of surgery - for melonoma left pinky finger [place] teeth extracted Past Anesthesia History No Hx of Anesthesia Complications and No Family Hx of Anesthesia Complications History of PONV No Hx of PONV and No Hx of Motion Sickness Social History Smoking Status: Never smoker Do You Dip or Chew Tobacco: No Hx Alcohol Use: No Hx Substance Use: No substance use type: does not use Review of Systems denies fever/cough/ colds/ chest pain/ SOB/ ADRIANA denies ADRIANA Physical Exam Vital Signs Last Vital Signs Temp 36.9 C 04/09/21 07:38 Pulse 77 04/09/21 09:09 Resp 18 04/09/21 07:38 BP 125/72 04/09/21 09:07 Pulse Ox 95 04/09/21 09:04 ENMT Mouth: no TMJ abnormality and no dentition abnormality Thyromental Distance: > or= 3.5 Finger Breadths Mallampati Class: II Neck neck extension not limited Respiratory normal respiratory effort; no respiratory distress Auscultation: lungs clear to auscultation bilaterally Cardiovascular Rate/Rhythm: regular rate and regular rhythm Neurologic moves all extremities Psychiatric Orientation: alert and oriented x 3 Testing Laboratory Results 04/07/21 09:10
[2021-04-09] MEDS ORDERED: fentaNYL citrate 100 MCG/2 ML VIAL ONE (08:31)
[2021-04-09] MEDS ORDERED: fentaNYL 2MCG/ML ROPIVACAINE 1.25MG/ML 100 ML BAG EPI ONE (08:31)
[2021-04-09] MEDS ORDERED: BUPIVACAINE 0.25% 30 ML VIAL ONE (08:31)
[2021-04-09] MEDS ORDERED: SODIUM CHLORIDE 0.9% INJ 10 ML VIAL ONE (08:31)
[2021-04-09] MEDS ORDERED: ePHEDrine sulfate 50 MG/ML AMP ONE (08:31)
[2021-04-09] MEDS: LACTATED RINGER'S 1,000 ML IV SCH ×2 (11:54→15:36)
[2021-04-09] MEDS ORDERED: oxyCODONE/ACETAMINOPHEN 5mg/325mg TAB PO PRN (18:50)
[2021-04-09] MEDS ORDERED: ACETAMINOPHEN W/CODEINE #3 1 TAB PO PRN (18:50)
[2021-04-09] MEDS ORDERED: HYDROCORTISONE ACETATE 25 MG SUPP PR PRN (18:50)
[2021-04-09] MEDS ORDERED: miSOPROStoL 100 MCG TAB PR ONE (18:50)
[2021-04-09] MEDS ORDERED: DIPHTHERIA/TETANUS/PERTUSSIS 0.5 ML SYR/VIAL IM ONE (18:50)
[2021-04-09] MEDS ORDERED: SUPERCREAM 0.870% 15 GM JAR EXT PRN (18:50)
[2021-04-09] MEDS ORDERED: BENZOCAINE 20% AER SPR 82.5 GM CAN EXT PRN (18:50)
[2021-04-09] MEDS ORDERED: ACETAMINOPHEN 325 MG TAB PO PRN (18:50)
[2021-04-09] MEDS ORDERED: bisacodyL 10 MG SUPP PR PRN (18:50)
[2021-04-09] MEDS ORDERED: miSOPROStoL 100 MCG TAB ONE (19:14)
--- NOTE | 2021-04-09 19:22 | Anesthesia Procedure Note ---
Date of Service April 09, 2021 Anesthesia Post Epidural Note Vital Signs Vital Signs: Temp Pulse Resp BP Pulse Ox 36.8 C 84 18 127/86 98 04/09/21 17:06 04/09/21 19:16 04/09/21 18:20 04/09/21 19:16 04/09/21 18:51 Pain Intensity Abdomen: Pain Intensity: 0 Notes Mental Status: alert / awake / arousable and participated in evaluation Patient Amnestic to Procedure: Yes Nausea / Vomiting: adequately controlled Pain: adequately controlled Airway Patency, RR, SpO2: stable & adequate BP & HR: stable & adequate Hydration State: stable & adequate Anesthetic Complications: no major complications apparent and Pt Satisfied with anesthetic care
[2021-04-09] MEDS: DOCUSATE SODIUM 100 MG CAP PO SCH (21:09)
[2021-04-09] MEDS: IBUPROFEN 600 MG TAB PO PRN (21:09)
[2021-04-10] MEDS: LEVOTHYROXINE SODIUM 25 MCG TABLET PO SCH (06:26)
[2021-04-10 06:48] LABS: Hematocrit (blood only) 34.2 % (37-47); Hemoglobin 11.5 g/dL (12.0-16.0); Mean Corpuscular Hemoglobin 28.9 pg (25-34); Mean Corpuscular Hgb Conc 33.6 g/dL (32-36); Mean Corpuscular Volume 85.9 fL (80-100); Mean Platelet Volume 9.8 fL (7.4-10.4); Platelet Count 283 K/uL (130-400); RDW Coefficient of Variation 13.1 % (11.5-14.5); RDW Standard Deviation 41.4 fL (36.4-46.3); Red Blood Count 3.98 M/uL (4.2-5.4); White Blood Count 17.01 K/uL (4.8-10.8)
[2021-04-10] MEDS: PRENATAL VITAMIN 1 TAB PO SCH (07:50)
[2021-04-10] MEDS: NIFEdipine EXTENDED REL 30 MG TABCR PO SCH (07:50)
[2021-04-10] MEDS: DOCUSATE SODIUM 100 MG CAP PO SCH ×2 (07:50→20:14)
[2021-04-10] MEDS: LABETALOL HCL 100 MG TAB PO SCH ×3 (07:50→20:13)
--- NOTE | 2021-04-10 08:55 | Obstetrical Progress Note ---
Date of Service April 10, 2021 Assessment & Plan Admission and Anticipated Discharge Date Admission Date: April 07, 2021 Physical Exam Physical Exam: abdomen soft and non tender no calf tenderness ambulating well blood pressure well controlled on procardia and labetalol vagina bleeding scant hgb 11.5 Results & Data ([facility]) Vital Signs (Past 12 Hours) Vital Signs Temp Pulse Resp BP Pulse Ox 04/10/21 04:45 36.6 C 65 16 130/83 04/09/21 23:20 37.0 C 91 H 18 128/78 04/09/21 21:00 37.3 C 92 H 18 120/85 95
[2021-04-10] MEDS ORDERED: LABETALOL HCL 100 MG TAB PO SCH (09:00)
--- NOTE | 2021-04-10 14:50 | Delivery Summary ---
DATE OF OPERATION: 04/09/2021 DELIVERY NOTE The patient is a 3, para 1. Blood type is A positive, group B strep negative. The patient has a long history of hypertension. Her first visit she was already on Procardia. Her initial dose was 30 mg extended release daily. We followed her pressure during her . It started to go up. We eventually gave her the 30 mg extended release twice a day and then as her pressures went up, we quickly doubled it to 60 extended release twice in 2 divided doses 12 hours apart. She held on this medication for a good while, then she began to creep up again, we added labetalol. First, we added labetalol 100 mg twice a day. She creeped up a little bit and we stepped it up to 100 mg 3 times a day. Because of her history of hypertension we brought her in for induction at 37 weeks. 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 When she was brought in for induction her initial blood pressure was 141/67 and this was on the Procardia and labetalol. The cervix was unripe and so she underwent a rather long induction, started out with p.o. Cytotec 3 doses about 5 hours apart. Then about the time for the fourth dose she was ratna too frequently and we did a Cervidil tape. 12 hours later, we removed the Cervidil tape and about an hour after that, we put another Cervidil tape and removed the second Cervidil tape. She was about a centimeter plus dilated and we started her on IV Pitocin. We got her up to almost 2 cm on the IV Pitocin, ruptured her membranes, fluid was clear. We then continued to augment her on IV Pitocin. She dilated slowly but steadily. Head came down after the cervix became fully dilated. She received 2 doses of IV Stadol. She subsequently had epidural for pain relief and we had to wait a long time for cervical lip to clear and then she pushed out a live male infant in about half an hour. Infant breathed and cried spontaneously. We allowed the cord to pulse for a full minute, then cut the cord and clamped the cord. Cord was cut by the father. Cord blood was taken. With IV Pitocin running, the placenta was removed intact. Inspection revealed bilateral sulcus lacerations deeper on the right side than the left side. The extent of the lacerations were identified and they were repaired with a running 2-0 Vicryl out and to beyond the hymenal ring on the right side and then on the left side the apex was identified and the vaginal mucosa was approximated out and to beyond the hymenal ring on the right side. Following this, vaginal examination revealed a good anatomical repair. There were no defects palpable. Sponges were removed. I inserted 800 mcg of vaginal Cytotec. There were no stitches through the rectum. The patient contracted well. Estimated blood loss was 200 mL and placenta was sent for evaluation. I attest to the content of the Intraoperative Record and any orders documented therein. Any exceptions are noted below. MTDD
[2021-04-10] MEDS ORDERED: bisacodyL 5 MG TABEC PO SCH (20:00)
[2021-04-10] MEDS: IBUPROFEN 600 MG TAB PO PRN (20:14)
[2021-04-11] MEDS: LEVOTHYROXINE SODIUM 25 MCG TABLET PO SCH (05:59)
[2021-04-11 06:18] LABS: Hematocrit (blood only) 33.5 % (37-47)
[2021-04-11] MEDS: NIFEdipine EXTENDED REL 30 MG TABCR PO SCH (07:52)
[2021-04-11] MEDS: DOCUSATE SODIUM 100 MG CAP PO SCH (07:52)
[2021-04-11] MEDS: PRENATAL VITAMIN 1 TAB PO SCH (07:52)
[2021-04-11] MEDS: LABETALOL HCL 100 MG TAB PO SCH ×2 (07:52→11:27)
--- NOTE | 2021-04-11 10:42 | Obstetrical Progress Note ---
Date of Service April 11, 2021 Assessment & Plan Admission and Anticipated Discharge Date Admission Date: April 07, 2021 Physical Exam Physical Exam: abdomen soft and non tender no calf tenderness ambulating well blood pressure well controlled on procardia and labetalol vaginal bleeding scant hgb 11.0 Results & Data ([facility]) Vital Signs (Past 12 Hours) Vital Signs Temp Pulse Resp BP Pulse Ox 04/11/21 07:25 36.8 C 77 18 124/73 95 04/10/21 23:25 36.8 C 69 18 120/72
== END 2021-04-11 11:43 | disposition home or self-care (01) | DRG 807 ==
LOC: 4S1 04-07 07:33 → 4S2 04-09 21:19